=== PATIENT | female | born 1940 | race Caucasian/White ===

== ENCOUNTER 2017-07-10 10:14 | Outpatient (CLI) | payer OTHER | END 2017-07-10 10:21 | disposition home or self-care (01) | LOC: SONOGRAMA 10:14 | DX: E04.1 Nontoxic single thyroid nodule (principal) ==

== ENCOUNTER 2023-09-23 11:51 | Outpatient (CLI) | payer OTHER | END 2023-09-23 11:58 | disposition home or self-care (01) | LOC: RAD 11:51 | PROVIDERS: ATTEND Internal Medicine Pulmonary Disease | DX: R06.02 Shortness of breath (principal) ==